=== PATIENT | male | born 1935 | race Caucasian/White ===

== ENCOUNTER 2019-04-19 06:08 | Emergency (ER) | payer MEDICARE, OTHER ==
[~2019-04-19] VITALS: Ht 180.3 cm; Wt 91.0 kg
[2019-04-19] MEDS ORDERED: OMEP-110 PO (06:26)
[2019-04-19] MEDS ORDERED: VERA120T5 PO (06:26)
[2019-04-19] MEDS ORDERED: FURO40TA6 PO (06:26)
[2019-04-19] MEDS ORDERED: GUAI200T3 PO (06:26)
[2019-04-19] MEDS ORDERED: INSU100V5 SQ-INSULIN (06:26)
[2019-04-19] MEDS ORDERED: POTA20TA91 PO (06:26)
[2019-04-19] MEDS ORDERED: RIVA15TA PO (06:26)
[2019-04-19] MEDS ORDERED: HYDR-3652 PO (06:26)
[2019-04-19] MEDS ORDERED: METO25TA91 PO (06:26)
[2019-04-19] MEDS ORDERED: TAMS-11 PO (06:26)
[2019-04-19] MEDS ORDERED: GABA100C PO (06:26)
[2019-04-19] MEDS ORDERED: PRAV40TA2 PO (06:26)
--- NOTE | 2019-04-19 06:38 | NUR ---
BIB [facility] D/T FELL HIT BACK HEAD NO LOC AAOX4 FROM [facility] PT IS ON XARALTO NO ACTIVE BLEEDING FROM BACK OF HEAD BUT HAS HEMATOMA pt is very aaox all home meds were updated vss HR is slow up to 50's bp stable
[2019-04-19 06:39] LABS: BASOPHILS # (AUTO) 0.01 x10^3/uL (0-0.1); BASOPHILS % (AUTO) 0 % (0-1); EOSINOPHILS # (AUTO) 0.17 x10^3/uL (0-0.4); EOSINOPHILS % (AUTO) 3 % (1-7); LYMPHOCYTES % (AUTO) 38 % (22-44); MD NO; MEAN CORPUSCULAR HEMOGLOBIN 31.6 pg (27.5-34.5); MEAN CORPUSCULAR HGB CONC 33.1 g/dL (33.2-36.2); MEAN CORPUSCULAR VOLUME 95.5 fL (81-97); MEAN PLATELET VOLUME 7.5 fL (7.4-10.4); MONOCYTES % (AUTO) 9 % (2-9); NEUTROPHILS # (AUTO) 2.85 x10^3/uL (1.8-6.8); NEUTROPHILS % (AUTO) 50 % (42-75); PLATELET COUNT 201 x10^3/uL (130-400); RED BLOOD COUNT 3.88 x10^6/uL (4.38-5.82); RED CELL DISTRIBUTION WIDTH 15.3 % (9.4-14.8)
[2019-04-19 06:41] LABS: CHLORIDE 108 mmol/L (98-107)
--- NOTE | 2019-04-19 06:43 | NUR ---
ASSUMED PATIENT CARE.
--- NOTE | 2019-04-19 06:49 | NUR ---
given report to jeanne rodriguez pt came back from ct head and neck
[2019-04-19 06:52] LABS: ANION GAP 5 mmol/L (5-15); CALCIUM 8.5 mg/dL (8.5-10.1); CREATININE 1.62 mg/dL (0.7-1.3)
--- NOTE | 2019-04-19 07:35 | NUR ---
[facility] CALLED. SPOKE WITH CALIN HART AND VANESSA HART. REPORT TO VANESSA HART, LOCATION AND MEASUREMENT TECHNICIAN, WHOM WILL ARRANGE TRANSPORTATION VIA [facility]. SHE WILL CALL BACK WITH AN UPDATE
--- NOTE | 2019-04-19 07:51 | NUR ---
SPOKE WITH VANESSA HART, SHE IS ARRANGING TRANSPORT VIA [facility] WITH SECURITY FLEX OFFICER WITH TRANSPORT.
[2019-04-19] MEDS ORDERED: BACITRACIN ZINC OINT 500U/GM, 0.9 GM ONE (08:33)
--- NOTE | 2019-04-19 09:02 | NUR ---
MARIA ELENA HART CALLED TO UPDATE THAT PLAN OF CARE FROM TRANSPORTATION HAS CHANGED
--- NOTE | 2019-04-19 09:22 | NUR ---
NAOMY ASSISTED TO BATHROOM VIA WHEELCHAIR. ONE PERSON ASSSIT. PATIENT RETURNED TO ROOM AND BED AND VS MONITOR RE-ESTABLISHED. BREAKFAST TRAY ORDERED AND COMFORT MEASURES DONE
[2019-04-19 09:59] VITALS: BP 152/62
== END 2019-04-19 10:22 | disposition home or self-care (01) ==
LOC: ED 10:14
DX: S00.03XA Contusion of scalp, initial encounter (principal); E11.9 Type 2 diabetes mellitus without complications; I48.91 Unspecified atrial fibrillation; Z95.1 Presence of aortocoronary bypass graft; W01.0XXA Fall on same level from slipping, tripping and stumbling without subsequent striking against object, initial encounter; Y93.89 Activity, other specified; Y92.009 Unspecified place in unspecified non-institutional (private) residence as the place of occurrence of the external cause; Y99.8 Other external cause status
CPT/HCPCS: 36415; 70450; 72125; 80048; 85025; 99284